=== PATIENT | female | born 1950 | race Caucasian/White ===

== ENCOUNTER 2024-02-06 19:03 | Inpatient (IN) | payer OTHER ==
[~2024-02-06] VITALS: Ht 162.6 cm; Wt 54.4 kg
[2024-02-06 19:51] VITALS: BP_SYST 120; PULSE 66; RESP 16; TEMP 97.2; O2SAT 94
[2024-02-06 20:37] LABS: BASOPHILS % (AUTO) 0.5 % (0.0-2.0); EOSINOPHILS # (AUTO) 0.1 K/uL (0.0-0.4); EOSINOPHILS % (AUTO) 1.2 % (0.0-4.0); HEMATOCRIT 32.4 % (36-48); LYMPHOCYTES # (AUTO) 0.9 K/uL (1.0-5.5); LYMPHOCYTES % (AUTO) 12.1 % (20.5-51.5); MEAN CORPUSCULAR HEMOGLOBIN 34 pg (27-31); MEAN CORPUSCULAR HGB CONC 34 % (32-36); MEAN CORPUSCULAR VOLUME 100 fL (79.0-98.0); MONOCYTES # (AUTO) 0.4 K/uL (0.0-1.0); NEUTROPHILS # (AUTO) 6.3 K/uL (1.8-7.7); NEUTROPHILS % (AUTO) 81.2 % (40.0-70.0); PLATELET COUNT (AUTO) 345 K/uL (130-430); RED BLOOD CELL COUNT(AUTO) 3.26 MIL/uL (4.2-6.2); WHITE BLOOD COUNT (AUTO) 7.7 K/uL (4.8-10.8)
[2024-02-06 20:45] LABS: ANION GAP 12 (5-15); CALCIUM 8.8 mg/dL (8.4-11.0); CARBON DIOXIDE 26 mmol/L (23-29); CHLORIDE 105 mmol/L (98-107); CREATININE 0.74 mg/dL (0.55-1.30); GLUCOSE 143 mg/dL (74-106); POTASSIUM 4.3 mmol/L (3.5-5.1); SODIUM SERUM 143 mmol/L (136-145); UREA NITROGEN, BLOOD 23 mg/dL (8-21)
[2024-02-06 22:01] LABS: BILIRUBIN,URINE NEGATIVE (NEGATIVE); BLOOD, URINE 1+ (NEGATIVE); COLOR,URINE YELLOW (YELLOW); GLUCOSE,URINE NEGATIVE (NEGATIVE); KETONES,URINE 2+ (NEGATIVE); LEUKOCYTE ESTERASE ,URINE 3+ (NEGATIVE); NITRITE, URINE NEGATIVE (NEGATIVE); PROTEIN URINE 1+ (NEGATIVE); UROBILINOGEN,URINE 0.2 (0.2-1.0)
[2024-02-06 22:08] LABS: CLARITY/URINE HAZY (CLEAR)
[2024-02-06 22:09] LABS: BACTERIA,URINE FEW /HPF (None Seen); MUCUS,URINE None Seen /LPF (None Seen); RBC,URINE 0-3 /HPF (0-3); WBC,URINE 50-80 /HPF (0-3)
[2024-02-06] MEDS ORDERED: cefTRIAXone 1 GM VIAL ONE (23:10)
[2024-02-06] MEDS: cefTRIAXone 1 GM in D5W 50 ML IV ONE (23:41)
[2024-02-07] VITALS (8 sets, daily range): BP systolic 115–143; PULSE 68–80; RESP 16–19; TEMP 97.2–98.2; O2SAT 94–98
[2024-02-07] MEDS ORDERED: HYDROcodone/ACETAMIN 5-325 MG TAB (NORCO/ VICODIN) PO PRN (00:30)
[2024-02-07] MEDS ORDERED: ALBUTEROL SULFATE 0.083% 2.5 MG/3 ML VIAL.NEB INH PRN (00:30)
[2024-02-07] MEDS: ACETAMINOPHEN 325 MG TABLET PO PRN (04:19)
[2024-02-07] MEDS: MORPHINE 2 MG/ML INJ. SYRINGE IVP PRN (04:24)
[2024-02-07] MEDS: ONDANSETRON HCL 4 MG/2 ML VIAL IVP PRN (04:30)
[2024-02-07] MEDS ORDERED: LEVE500T99 PO (06:33)
[2024-02-07] MEDS ORDERED: ATOR40TA68 PO (06:35)
[2024-02-07] MEDS ORDERED: PRIM50TA27 PO (06:37)
[2024-02-07] MEDS ORDERED: BACL20TA PO (06:37)
[2024-02-07] MEDS ORDERED: TRAZ-250 PO (06:38)
[2024-02-07] MEDS ORDERED: FLUO20TA29 PO (06:42)
[2024-02-07] MEDS ORDERED: LEVE1000 PO (06:43)
[2024-02-07 10:27] LABS: BASOPHILS % (AUTO) 0.6 % (0.0-2.0); EOSINOPHILS % (AUTO) 0.4 % (0.0-4.0); HEMATOCRIT 32.1 % (36-48); HEMOGLOBIN 10.7 g/dL (12.0-16.0); LYMPHOCYTES # (AUTO) 1.1 K/uL (1.0-5.5); LYMPHOCYTES % (AUTO) 20.5 % (20.5-51.5); MEAN CORPUSCULAR HEMOGLOBIN 33 pg (27-31); MEAN CORPUSCULAR HGB CONC 34 % (32-36); MEAN CORPUSCULAR VOLUME 99 fL (79.0-98.0); MONOCYTES # (AUTO) 0.3 K/uL (0.0-1.0); MONOCYTES % (AUTO) 6.3 % (1.7-9.3); NEUTROPHILS # (AUTO) 3.9 K/uL (1.8-7.7); NEUTROPHILS % (AUTO) 72.2 % (40.0-70.0); PLATELET COUNT (AUTO) 359 K/uL (130-430); RED BLOOD CELL COUNT(AUTO) 3.23 MIL/uL (4.2-6.2); RED CELL DISTRIBUTION WIDTH 14.9 % (9.0-15.0)
[2024-02-07 10:39] LABS: WHITE BLOOD COUNT (AUTO) 5.4 K/uL (4.8-10.8)
[2024-02-07 10:50] LABS: ALANINE AMINOTRANSFERASE 27 U/L (12-78); ALBUMIN 2.8 g/dL (3.4-4.8); ANION GAP 13 (5-15); ASPARTATE AMINOTRANSFERASE 20 U/L (10-37); CALCIUM 9.1 mg/dL (8.4-11.0); CARBON DIOXIDE 27 mmol/L (23-29); CHLORIDE 104 mmol/L (98-107); CREATININE 0.88 mg/dL (0.55-1.30); GLUCOSE 118 mg/dL (74-106); SODIUM SERUM 144 mmol/L (136-145); TOTAL BILIRUBIN 0.2 mg/dL (0.0-1.0); TOTAL PROTEIN, SERUM 7.4 g/dL (6.4-8.3); UREA NITROGEN, BLOOD 22 mg/dL (8-21)
[2024-02-07] MEDS: cefTRIAXone 1 GM IVPB PREMIX 50 ML IV SCH (22:35)
[2024-02-07] MEDS ORDERED: levETIRAcetam 500 MG TABLET PO SCH (22:45)
[2024-02-07] MEDS ORDERED: PRIMIDONE 50 MG TABLET PO SCH (22:45)
[2024-02-07] MEDS: cefTRIAXone 1 GM IVPB PREMIX 50 ML IV ONE (22:51)
[2024-02-08] MEDS: levETIRAcetam 500 MG TABLET PO SCH (00:19)
[2024-02-08] MEDS: PRIMIDONE 50 MG TABLET PO SCH (00:19)
[2024-02-08 00:29] VITALS: BP_SYST 112; PULSE 85; RESP 16; TEMP 98.7; O2SAT 93
[2024-02-08 07:33] LABS: BASOPHILS % (AUTO) 0.6 % (0.0-2.0); EOSINOPHILS # (AUTO) 0.1 K/uL (0.0-0.4); EOSINOPHILS % (AUTO) 1.7 % (0.0-4.0); HEMATOCRIT 31.5 % (36-48); HEMOGLOBIN 10.8 g/dL (12.0-16.0); LYMPHOCYTES # (AUTO) 1.3 K/uL (1.0-5.5); LYMPHOCYTES % (AUTO) 25.3 % (20.5-51.5); MEAN CORPUSCULAR HEMOGLOBIN 35 pg (27-31); MEAN CORPUSCULAR HGB CONC 34 % (32-36); MONOCYTES # (AUTO) 0.6 K/uL (0.0-1.0); MONOCYTES % (AUTO) 10.9 % (1.7-9.3); NEUTROPHILS # (AUTO) 3.2 K/uL (1.8-7.7); NEUTROPHILS % (AUTO) 61.5 % (40.0-70.0); PLATELET COUNT (AUTO) 369 K/uL (130-430); RED BLOOD CELL COUNT(AUTO) 3.13 MIL/uL (4.2-6.2); WHITE BLOOD COUNT (AUTO) 5.2 K/uL (4.8-10.8)
[2024-02-08 07:36] LABS: ALANINE AMINOTRANSFERASE 14 U/L (12-78); ALBUMIN 2.8 g/dL (3.4-4.8); ANION GAP 11 (5-15); ASPARTATE AMINOTRANSFERASE 20 U/L (10-37); CALCIUM 8.9 mg/dL (8.4-11.0); CARBON DIOXIDE 28 mmol/L (23-29); CHLORIDE 103 mmol/L (98-107); CREATININE 0.74 mg/dL (0.55-1.30); GLUCOSE 100 mg/dL (74-106); POTASSIUM 4.5 mmol/L (3.5-5.1); SODIUM SERUM 142 mmol/L (136-145); TOTAL BILIRUBIN 0.3 mg/dL (0.0-1.0); TOTAL PROTEIN, SERUM 7.2 g/dL (6.4-8.3); UREA NITROGEN, BLOOD 24 mg/dL (8-21)
[2024-02-08 07:46] LABS: MEAN CORPUSCULAR VOLUME 101 fL (79.0-98.0)
[2024-02-08 08:05] VITALS: BP_SYST 107; PULSE 80; RESP 16; TEMP 97.4; O2SAT 95
[2024-02-08 10:00] VITALS: O2SAT 95
[2024-02-08] MEDS: FLUoxetine HCL 20 MG CAPSULE (PROzac) PO SCH (10:15)
[2024-02-08 11:02] VITALS: BP_SYST 138; PULSE 91; RESP 16; TEMP 98.4; O2SAT 94
[2024-02-08 16:04] VITALS: BP_SYST 140; PULSE 90; RESP 16; TEMP 98.4; O2SAT 95
[2024-02-08] MEDS: HYDROcodone/ACETAMIN 10-325 MG TAB PO PRN (17:15)
[2024-02-08 20:01] VITALS: BP_SYST 112; PULSE 87; RESP 18; TEMP 98.6; O2SAT 96
[2024-02-08] MEDS: ATORVASTATIN 20 MG TABLET PO SCH (20:56)
[2024-02-08] MEDS: traZODone HCL 50 MG TABLET (DESYREL) PO SCH (20:56)
[2024-02-08] MEDS: cefTRIAXone 1 GM IVPB PREMIX 50 ML IV ONE (23:03)
[2024-02-09] VITALS (8 sets, daily range): BP systolic 118–128; PULSE 78–89; RESP 16–18; TEMP 97.2–98.6; O2SAT 93–100
[2024-02-09 05:56] LABS: BASOPHILS % (AUTO) 0.8 % (0.0-2.0); EOSINOPHILS # (AUTO) 0.1 K/uL (0.0-0.4); EOSINOPHILS % (AUTO) 2.8 % (0.0-4.0); HEMATOCRIT 30.1 % (36-48); HEMOGLOBIN 10.5 g/dL (12.0-16.0); LYMPHOCYTES # (AUTO) 1.3 K/uL (1.0-5.5); LYMPHOCYTES % (AUTO) 29.4 % (20.5-51.5); MEAN CORPUSCULAR HEMOGLOBIN 34 pg (27-31); MEAN CORPUSCULAR HGB CONC 35 % (32-36); MEAN CORPUSCULAR VOLUME 99 fL (79.0-98.0); MONOCYTES # (AUTO) 0.6 K/uL (0.0-1.0); MONOCYTES % (AUTO) 12.6 % (1.7-9.3); NEUTROPHILS # (AUTO) 2.5 K/uL (1.8-7.7); NEUTROPHILS % (AUTO) 54.4 % (40.0-70.0); PLATELET COUNT (AUTO) 333 K/uL (130-430); RED BLOOD CELL COUNT(AUTO) 3.05 MIL/uL (4.2-6.2); WHITE BLOOD COUNT (AUTO) 4.6 K/uL (4.8-10.8)
[2024-02-09 06:25] LABS: ALANINE AMINOTRANSFERASE 21 U/L (12-78); ALBUMIN 2.5 g/dL (3.4-4.8); ANION GAP 9 (5-15); CALCIUM 8.9 mg/dL (8.4-11.0); CARBON DIOXIDE 29 mmol/L (23-29); CHLORIDE 104 mmol/L (98-107); CREATININE 0.72 mg/dL (0.55-1.30); GLUCOSE 122 mg/dL (74-106); POTASSIUM 4.3 mmol/L (3.5-5.1); SODIUM SERUM 142 mmol/L (136-145); TOTAL BILIRUBIN 0.2 mg/dL (0.0-1.0); TOTAL PROTEIN, SERUM 6.7 g/dL (6.4-8.3); UREA NITROGEN, BLOOD 26 mg/dL (8-21)
[2024-02-09 08:13] LABS: ASPARTATE AMINOTRANSFERASE 35 U/L (10-37)
[2024-02-09] MEDS: cefTRIAXone 1 GM IVPB PREMIX 50 ML IV ONE (22:52)
[2024-02-10] VITALS: BP_SYST 108; PULSE 89; RESP 16; TEMP 97.7; O2SAT 91
[2024-02-10 05:11] LABS: BASOPHILS % (AUTO) 0.8 % (0.0-2.0); EOSINOPHILS # (AUTO) 0.1 K/uL (0.0-0.4); EOSINOPHILS % (AUTO) 2.9 % (0.0-4.0); HEMATOCRIT 28.6 % (36-48); HEMOGLOBIN 10.1 g/dL (12.0-16.0); LYMPHOCYTES # (AUTO) 1.3 K/uL (1.0-5.5); LYMPHOCYTES % (AUTO) 31.3 % (20.5-51.5); MEAN CORPUSCULAR HEMOGLOBIN 35 pg (27-31); MEAN CORPUSCULAR HGB CONC 35 % (32-36); MEAN CORPUSCULAR VOLUME 98 fL (79.0-98.0); MONOCYTES # (AUTO) 0.5 K/uL (0.0-1.0); MONOCYTES % (AUTO) 11.8 % (1.7-9.3); NEUTROPHILS # (AUTO) 2.2 K/uL (1.8-7.7); NEUTROPHILS % (AUTO) 53.2 % (40.0-70.0); PLATELET COUNT (AUTO) 312 K/uL (130-430); RED BLOOD CELL COUNT(AUTO) 2.92 MIL/uL (4.2-6.2); RED CELL DISTRIBUTION WIDTH 15.1 % (9.0-15.0); WHITE BLOOD COUNT (AUTO) 4.1 K/uL (4.8-10.8)
[2024-02-10 05:14] LABS: ERYTHROCYTE SEDIMENTATION RATE 52 MM/HR (0-20)
[2024-02-10 05:31] LABS: ANION GAP 8 (5-15); CALCIUM 8.9 mg/dL (8.4-11.0); CARBON DIOXIDE 29 mmol/L (23-29); CHLORIDE 103 mmol/L (98-107); CREATININE 0.65 mg/dL (0.55-1.30); GLUCOSE 108 mg/dL (74-106); POTASSIUM 4.1 mmol/L (3.5-5.1); SODIUM SERUM 140 mmol/L (136-145); UREA NITROGEN, BLOOD 24 mg/dL (8-21)
[2024-02-10 07:50] VITALS: PULSE 80; O2SAT 94
[2024-02-10 08:25] VITALS: BP_SYST 136; PULSE 83; RESP 19; TEMP 96; O2SAT 94
[2024-02-10 08:39] VITALS: O2SAT 95
[2024-02-10 10:05] VITALS: BP_SYST 130; PULSE 74; RESP 18; TEMP 97; O2SAT 96
[2024-02-10] MEDS ORDERED: cefTRIAXone 1 GM IVPB PREMIX 50 ML IV SCH (21:00)
== END 2024-02-10 10:40 | disposition home or self-care (01) | DRG 72 ==
LOC: SED 19:03 → STU 02-07 00:27 → SMU 02-08 13:14
PROVIDERS: ADMIT Family Medicine; ATTEND Family Medicine
DX: G93.41 Metabolic encephalopathy (principal); D64.9 Anemia, unspecified; D72.819 Decreased white blood cell count, unspecified; E78.5 Hyperlipidemia, unspecified; E88.09 Other disorders of plasma-protein metabolism, not elsewhere classified; G40.909 Epilepsy, unspecified, not intractable, without status epilepticus; I10 Essential (primary) hypertension; Z79.899 Other long term (current) drug therapy; R79.89 Other specified abnormal findings of blood chemistry
CPT/HCPCS: 36415; 70450-TC; 71045; 80048; 80053; 81000; 81001; 81015; 82948; 83605; 85025; 85651; 87040; 87086; 92610-GN; 93005; 94070; 94760; 96365; 97110-GP; 97116-GP; 97530-GP; 99291; G0378; J0696; J2270; J2405